=== PATIENT | female | born 1990 | race Caucasian/White ===

== ENCOUNTER 2016-10-28 21:15 | Emergency (ER) | payer BC ==
[2016-10-28] MEDS ORDERED: ZOLOFT50 M1 PO (21:37)
[2016-10-28] MEDS ORDERED: SPRINTEC 28 DA1 EACH PO (21:37)
== END 2016-10-28 23:03 ==
LOC: EDMED 21:15
PROC: 0HQFXZZ Repair Right Hand Skin, External Approach (ICD-10-PCS; principal; 2016-10-28)
DX: S61.210A Laceration without foreign body of right index finger without damage to nail, initial encounter (principal); W27.5XXA Contact with paper-cutter, initial encounter; Y92.019 Unspecified place in single-family (private) house as the place of occurrence of the external cause